=== PATIENT | female | born 2000 | race Two or more races ===

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

== ENCOUNTER 2020-08-01 10:46 | Inpatient (IN) | payer MEDICAID ==
[~2020-08-01] VITALS: Ht 154.9 cm; Wt 78.0 kg
[2020-08-01] MEDS ORDERED: SODIUM CHLORIDE 0.9% 1,000 ML IV ONE (12:00)
[2020-08-01] MEDS ORDERED: cefTRIAXone 1GM/50ML D5W 50 ML IV ONE (12:00)
[2020-08-01] MEDS ORDERED: ASCORBIC ACID 500 MG TAB PO ONE (12:00)
[2020-08-01] MEDS ORDERED: AZITHROMYCIN 500MG/ 250ML 250 ML IV ONE (12:00)
[2020-08-01] MEDS ORDERED: ZINC SULFATE 220mg CAP or TAB PO ONE (12:00)
[2020-08-01 12:50] LABS: Basophils # (auto) 0.1 10 ^3/uL (0-0.2); Basophils % (auto) 1.5 % (0.0-2.0); Eosinophils # (auto) 0.1 10 ^3/uL (0-0.8); Eosinophils % (auto) 2.1 % (0.0-7.0); Hematocrit 38.5 % (36.0-46.0); Hemoglobin 12.8 g/dL (12.2-16.2); Lymphocytes # (auto) 0.9 10 ^3/uL (0.4-5.4); Lymphocytes % (auto) 20.8 % (10.0-50.0); Mean Corpuscular Hemoglobin 29.5 pg (28.0-32.0); Mean Corpuscular Hgb Conc. 33.3 g/dL (32.0-36.0); Mean Corpuscular Volume 88.7 fL (80.0-100.0); Monocytes # (auto) 0.6 10 ^3/uL (0-1.3); Monocytes % (auto) 13.1 % (0.0-12.0); Neutrophils # (auto) 2.8 10 ^3/uL (1.6-8.6); Neutrophils % (auto) 62.5 % (37.0-80.0); Nucleated Red Blood Cells % 0.1 %; Platelet Count (auto) 264 10^3/uL (140-450); Red Blood Cells 4.34 10^6/uL (4.0-5.20); Red Cell Distribution Width 13.6 % (11.8-14.3); White Blood Cell 4.5 10^3/uL (4.4-10.8)
[2020-08-01 13:07] LABS: Albumin 3.5 g/dL (3.4-5.0); Calcium 8.6 mg/dL (8.5-10.1); Magnesium 2.6 mg/dL (1.6-2.6); Potassium 3.6 mmol/L (3.5-5.1)
[2020-08-01 13:11] LABS: BUN/Creatinine Ratio 17.1; Bilirubin, Total 0.4 mg/dL (0.2-1.0); Total Protein 7.2 g/dL (6.4-8.2)
[2020-08-01 15:52] LABS: Urine Bacteria FEW /hpf (None Seen); Urine Blood Negative /uL (Negative); Urine Mucus FEW (None Seen); Urine Specific Gravity 1.008 (1.001-1.035); Urine WBC 8 /hpf (0 - 5)
[2020-08-01] MEDS ORDERED: NITROGLYCERIN 0.4 MG SL TAB SL PRN (18:30)
[2020-08-01] MEDS ORDERED: ACETAMINOPHEN 500 MG TAB PO PRN (18:30)
[2020-08-01] MEDS ORDERED: MORPHINE SULF INJ 2 MG/ML SYRINGE 1ML IV PRN (18:30)
[2020-08-01 19:55] LABS: CRP High Sensitivity 0.79 mg/dL (< 0.3); Magnesium 2.5 mg/dL (1.6-2.6)
[2020-08-01 22:08] VITALS: BP 140/92
[2020-08-02 05:00] VITALS: BP 110/72
[2020-08-02 07:23] LABS: Basophils # (auto) 0 10 ^3/uL (0-0.2); Basophils % (auto) 0.9 % (0.0-2.0); Eosinophils # (auto) 0.2 10 ^3/uL (0-0.8); Eosinophils % (auto) 3.9 % (0.0-7.0); Hematocrit 39.9 % (36.0-46.0); Hemoglobin 13.3 g/dL (12.2-16.2); Lymphocytes # (auto) 1.3 10 ^3/uL (0.4-5.4); Lymphocytes % (auto) 25.6 % (10.0-50.0); Mean Corpuscular Hemoglobin 29.5 pg (28.0-32.0); Mean Corpuscular Hgb Conc. 33.3 g/dL (32.0-36.0); Mean Corpuscular Volume 88.6 fL (80.0-100.0); Monocytes # (auto) 0.9 10 ^3/uL (0-1.3); Neutrophils # (auto) 2.7 10 ^3/uL (1.6-8.6); Neutrophils % (auto) 52.6 % (37.0-80.0); Nucleated Red Blood Cells % 0.1 %; Platelet Count (auto) 252 10^3/uL (140-450); Red Blood Cells 4.51 10^6/uL (4.0-5.20); White Blood Cell 5.1 10^3/uL (4.4-10.8)
[2020-08-02 07:38] LABS: Albumin 3.5 g/dL (3.4-5.0); Calcium 8.6 mg/dL (8.5-10.1); Potassium 3.9 mmol/L (3.5-5.1)
[2020-08-02 07:42] LABS: BUN/Creatinine Ratio 11.8; Bilirubin, Total 0.2 mg/dL (0.2-1.0); Total Protein 6.9 g/dL (6.4-8.2)
[2020-08-02 09:00] VITALS: BP 125/77
[2020-08-02] MEDS ORDERED: cefTRIAXone 1GM/50ML D5W 50 ML IV SCH (09:00)
[2020-08-02] MEDS ORDERED: ZINC SULFATE 220mg CAP or TAB PO SCH (10:00)
[2020-08-02] MEDS ORDERED: ASCORBIC ACID 1,000 MG TAB PO SCH (10:00)
[2020-08-02] MEDS ORDERED: ENOXAPARIN SOD 40 MG/0.4 ML SYRINGE SC SCH (10:00)
[2020-08-02] MEDS ORDERED: CHOLECALCIFEROL (VITD3) 2,000 UNIT CAP PO SCH (10:00)
[2020-08-02] MEDS ORDERED: DOXY-340 PO (12:30)
[2020-08-02] MEDS ORDERED: ASCO10003 PO (12:30)
[2020-08-02] MEDS ORDERED: CHOL1CAP47 PO (12:30)
[2020-08-02 13:00] VITALS: BP 116/75
[2020-08-02 13:09] VITALS: BP 116/75
== END 2020-08-02 17:25 | disposition home or self-care (01) | DRG 137 ==
LOC: ER 10:46 → TELE 10:47 → TELE-EAST 21:38
PROVIDERS: ADMIT Nurse Practitioner Acute Care; ATTEND Internal Medicine
DX: U07.1 COVID-19 (principal); N30.90 Cystitis, unspecified without hematuria; F17.210 Nicotine dependence, cigarettes, uncomplicated; E66.9 Obesity, unspecified; Z68.32 Body mass index [BMI] 32.0-32.9, adult; J98.8 Other specified respiratory disorders
CPT/HCPCS: 36415; 71045; 80053; 81001; 82728; 83615; 83735; 84443; 84702; 85025; 85379; 86141; 87086; 87426; 93005; 96365; 96368; G0378; J0696

== ENCOUNTER 2020-09-11 18:20 | Emergency (ER) | payer MEDICAID, OTHER ==
[~2020-09-11] VITALS: Ht 180.3 cm; Wt 77.1 kg
[~2020-09-11 18:20] MED LIST: ASCO10003 PO; CHOL1CAP47 PO; DOXY-340 PO
[2020-09-11 22:05] VITALS: BP 145/98
== END 2020-09-11 22:23 | disposition home or self-care (01) ==
LOC: ER 18:20
DX: S13.4XXA Sprain of ligaments of cervical spine, initial encounter (principal); Z79.899 Other long term (current) drug therapy; V49.9XXA Car occupant (driver) (passenger) injured in unspecified traffic accident, initial encounter; Y93.89 Activity, other specified; Y92.89 Other specified places as the place of occurrence of the external cause; Y99.8 Other external cause status

== ENCOUNTER 2021-10-21 20:12 | Emergency (ER) | payer MEDICAID, OTHER ==
[~2021-10-21] VITALS: Ht 154.9 cm; Wt 81.6 kg
[2021-10-21] MEDS ORDERED: ACETAMINOPHEN 325 MG TAB PO ONE (21:00)
[2021-10-21 23:30] VITALS: BP 149/88
== END 2021-10-22 03:02 | disposition home or self-care (01) ==
LOC: ER 20:13
DX: U07.1 COVID-19 (principal); J18.9 Pneumonia, unspecified organism
CPT/HCPCS: 36415; 71045; 87426; 87804

== ENCOUNTER 2024-09-06 22:32 | Emergency (ER) | payer MEDICAID ==
[~2024-09-06] VITALS: Ht 154.9 cm; Wt 94.0 kg
[2024-09-06 22:32] VITALS: BP 152/99; PULSE 86; RESP 18; TEMP 98.8; O2SAT 98
[~2024-09-06 22:32] MED LIST changes: -DOXY-340 PO; +DOXY1CAP57 PO
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
[2024-09-06] MEDS: ACETAMINOPHEN 325 MG TAB PO ONE (23:41)
--- NOTE | 2024-09-07 00:03 | DVH ---
CT BRAIN WITHOUT CONTRAST HISTORY: head injury TECHNIQUE: Axial scans were obtained from the skull base through the vertex without contrast. Sagitta l and coronal reformats were generated. One or more of the following radiation dose reduction techniq ues were used for this examination: automated exposure control, adjustment of the mA and/or kV accord ing to patient size, use of iterative reconstruction technique. COMPARISON: None FINDINGS: No acute intracranial hemorrhage or evidence of large vessel territorial infarction identified at thi s time. No midline shift. The basilar cisterns are patent. Kelsey-white differentiation appears relat ively preserved. Midline frontal scalp contusion / hematoma. The paranasal sinuses and mastoid air cells are clear. No grossly displaced calvarial fracture is peggy ntified. IMPRESSION: No acute intracranial findings. Midline frontal scalp contusion/hematoma. CT OF THE CERVICAL SPINE WITHOUT CONTRAST HISTORY: head injury COMPARISON: None TECHNIQUE: Thin section helical axial scans were obtained from the skull base to the upper thoracic s pine. Sagittal and coronal reformatted images were obtained. One or more of the following radiation d ose reduction techniques were used for this examination: automated exposure control, adjustment of th e mA and/or kV according to patient size, use of iterative reconstruction technique. FINDINGS: Straightening and mild reversal of the cervical curvature. No grossly displaced fractures or subluxat ions identified. Vertebral body heights are maintained. The bony spinal canal is patent. Prevertebr al soft tissues appear within normal limits. IMPRESSION: No displaced fractures or subluxations identified. Straightening and mild reversal of the cervical curvature may be in part related to patient positioni ng and/or muscular spasm.
[2024-09-07] MEDS ORDERED: ACET500T58 PO (00:20)
== END 2024-09-07 00:39 | disposition home or self-care (01) ==
LOC: EDBD 22:32 → ER 22:32
DX: S16.1XXA Strain of muscle, fascia and tendon at neck level, initial encounter (principal); S00.03XA Contusion of scalp, initial encounter; Z79.899 Other long term (current) drug therapy; V49.88XA Car occupant (driver) (passenger) injured in other specified transport accidents, initial encounter; Y93.89 Activity, other specified; Y92.89 Other specified places as the place of occurrence of the external cause; Y99.8 Other external cause status
CPT/HCPCS: 70450; 72125

== ENCOUNTER 2024-09-12 18:49 | Emergency (ER) | payer MEDICAID, OTHER ==
[~2024-09-12] VITALS: Ht 154.9 cm; Wt 96.6 kg
[~2024-09-12 18:49] MED LIST changes: +ACET500T58 PO
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
[2024-09-12 19:52] VITALS: BP 130/73; PULSE 81; RESP 18; TEMP 97.7; O2SAT 96
== END 2024-09-12 19:54 | disposition home or self-care (01) ==
LOC: ER 18:49
DX: S39.012A Strain of muscle, fascia and tendon of lower back, initial encounter (principal); S70.01XA Contusion of right hip, initial encounter; R51.9 Headache, unspecified; Z79.899 Other long term (current) drug therapy; V49.49XA Driver injured in collision with other motor vehicles in traffic accident, initial encounter; Y93.I9 Activity, other involving external motion; Y92.89 Other specified places as the place of occurrence of the external cause; Y99.8 Other external cause status

== ENCOUNTER 2024-11-24 22:53 | Emergency (ER) | payer MEDICAID, OTHER ==
[~2024-11-24] VITALS: Ht 157.5 cm; Wt 91.0 kg
[2024-11-25 00:05] LABS: Rapid Influenza A Negative (Negative); Rapid Influenza B Negative (Negative)
[2024-11-25 00:07] LABS: COVID19 ANTIGEN SOFIA FIA POSITIVE (NEGATIVE)
--- NOTE | 2024-11-25 01:38 | ED.PDOC ---
SOB-HPI HPI Comments PT PRESENTED TO ED FOR FLU-LIKE S/S: DRY-COUGH, CONGESTION, NAUSEA X2 DAYS. BREATHING, CHEST PAIN, SHORTNESS OF BREATH, VOMITING, DIARRHEA, RECENT TRAVEL, OR KNOWN ILL CONTACTS. Chief Complaint: Flu like Time Seen by MD: 23:00 Primary Care Provider: unknown Reviewed notes: Nurses Notes, Medications, Allergies Information Source: Patient Mode of Arrival: Ambulatory Past Medical History PAST MEDICAL HISTORY: Denies Surgical History: Denies all surgeries CREDIT OR LOANS OFFICER History: No Pertinent CREDIT OR LOANS OFFICER History Family History Family History: Unknown Social History Smoker: Non-Smoker Alcohol: Denies ETOH Use Drugs: Denies Drug Use Lives In: Home Constitutional: reports: fever; denies: chills, diaphoresis, fatigue, malaise, sweats, weakness, others EENTM: reports: nasal discharge; denies: blurred vision, double vision, ear bleeding, ear discharge, ear drainage, ear pain, ear ringing, eye pain, eye redness, hearing loss, mouth pain, mouth swelling, nose bleeding, nose congestion, nose pain, photophobia, tearing, throat pain, throat swelling, voice changes, others Respiratory: reports: cough; denies: hemoptysis, orthopnea, SOB at rest, shortness of breath, SOB with excertion, stridor, wheezing, others Cardiovascular: denies: chest pain, dizzy spells, diaphoresis, Dyspnea on exertion, edema, irregular heart beat, left arm pain, lightheadedness, palpitations, PND, syncope, others Gastrointestinal: denies: abdomen distended, abdominal pain, blood streaked bowels, constipated, diarrhea, dysphagia, difficulty swallowing, hematemesis, melena, nausea, poor appetite, poor fluid intake, rectal bleeding, rectal pain, vomiting, others Genitourinary: denies: abnormal vagina bleeding, burning, dyspareunia, dysuria, flank pain, frequency, hematuria, incontinence, pain, , vagina discharge, urgency, others Neurological: denies: dizziness, fainting, headache, left sided numbness, left sided weakness, numbness, paresthesia, pre-existing deficit, right sided numbness, right sided weakness, seizure, speech problems, tingling, tremors, weakness, others Musculoskeletal: denies: back pain, gout, joint pain, joint swelling, muscle pain, muscle stiffness, neck pain, others Integumetry: denies: bruises, change in color, change in hair/nails, dryness, laceration, lesions, lumps, rash, wounds, others Allergic/Immunocompromised: denies: Difficulty Healing, Frequent Infections, Hives, Itching, others Hematologic/Lymphatic: denies: anemia, blood clots, easy bleeding, easy bruising, swollen glands, others Endocrine: denies: excessive hunger, excessive sweating, excessive thirst, excessive urination, flushing, intolerance to cold, intolerance to heat, unexplained weight gain, unexplained weight loss, others Psychiatric: denies: anxiety, bipolar disorder, depression, hopeless, panic disorder, schizophrenia, sleepless, suicidal, others Physical Exam General Appearance: No Apparent Distress, Normal HEENT: Pharyngeal Erythema, TMs Normal Neck: Full Range of Motion, Non-Tender Respiratory: Lungs Clear, No Respiratory Distress, Normal Breath Sounds Cardiovascular: No Edema, No JVD, No Murmur, No Gallop, Normal Peripheral Pulses, Regular Rate/Rhythm Breast Exam: Deferred Gastrointestinal: No Organomegaly, Non Tender, No Pulsatile Mass, Normal Bowel Sounds, Soft Genitalia: Deferred Pelvic: Deferred Rectal: Deferred Extremities: Normal capillary refill, Normal inspection, Normal range of motion, Non-tender, No pedal edema Musculoskeletal : Apperance: Normal Neurologic: Alert, supervisor inspecting II-XII nml as Tested, No Motor Deficits, Normal Affect, Normal Mood, No Sensory Deficits Cerebellar Function: Normal Reflexes: Normal Skin: Dry, Normal Color, Warm Lymphatic: No Adenopathy Was a procedure done? Was a procedure done?: No Differential Dx Differential Diagnosis: Asthma, Bronchitis, Pneumonia, URI X-Ray, Labs, Meds, VS Vital Signs Date Time Temp Pulse Resp B/P (MAP) Pulse Ox O2 Delivery O2 Flow Rate FiO2 11/25/24 01:55 100.3 93 20 149/93 (111) 97 100.3 11/25/24 01:55 93 20 97 Room Air 11/24/24 23:15 98.2 118 20 140/92 (108) 96 Lab Test 11/24/24 23:14 Range/Units Influenza Type A Antigen Negative Negative Influenza Type B Antigen Negative Negative SARS-CoV-2 Antigen (Rapid) Positive NEGATIVE X-Ray, Labs, Meds, VS Comment INFLUENZA A AND B SWAB NEGATIVE. POSITIVE COVID-19 SWAB. ADVISED PATIENT TO REST INCREASE P.O. FLUIDS WITH ELECTROLYTES. [id number] TYLENOL OR MOTRIN NEEDED FOR THE PAIN OR FEVER. ADVISED TO FOLLOW UP WITH HER PCP IN 2-3 DAYS NECESSARY. ER RETURN PRECAUTIONS GIVEN PATIENT INDICATES UNDERSTANDING AGREES WITH DISCHARGE CARE PLAN. Time of 1ST Reevaluation: 01:42 Reevaluation 1ST: Improved Patient Education/Counseling: Diagnosis, Treatment, Prognosis, Need For Follow Up Family Education/Counseling: No Family Present Departure 1 Departure Time of Disposition: :42 Impression: Primary Impression: COVID-19 Disposition: 01 HOME / SELF CARE / HOMELESS Condition: Stable Discharged With: Self Critical Care Note Critical Care Time?: No Stability Stability form required: No Heart Score Heart Score: Heart Score Response (Comments) Value History N/A 0 EKG N/A 0 Age <45 0 Risk Factors N/A 0 Troponin N/A 0 Total 0 RORY PILLAI Nov 25, 2024 01:38
[2024-11-25 01:55] VITALS: BP 149/93; PULSE 93; RESP 20; TEMP 100.3; O2SAT 97
== END 2024-11-25 02:47 | disposition home or self-care (01) ==
LOC: ER 22:53
DX: U07.1 COVID-19 (principal)
CPT/HCPCS: 36415; 87426; 87804